=== PATIENT | female | born 2000 | race Caucasian/White ===

== ENCOUNTER → 2022-03-23 | Outpatient (CLI) | payer OTHER, SELFPAY ==
--- NOTE | 2022-03-23 13:53 | US_ITS ---
STUDY: ULTRASOUND BREAST - RIGHT REASON FOR EXAM: Female, 22 years old. Palpable lump in the right breast. Patient is . TECHNIQUE: Axial and longitudinal images of the RIGHT breast were performed with a high resolution ultrasound transducer. # OF IMAGES: 57 COMPARISON: None. FINDINGS: RIGHT Breast: The right breast was examined with ultrasound. Heterogeneous fibroglandular tissue. There is a 2.7 cm x 3.4 cm x 0.9 cm well-defined hypoechoic density at the 5 o''clock in the breast at 3 cm from nipple. This may represent a fibroadenoma. Biopsy recommended. US/Breast Limited Unilateral IMPRESSION: 2.7 cm x 3.4 cm x 0.9 cm well-defined hypoechoic solid nodule at the 5 o''clock position of the breast at 3 cm from the nipple. Biopsy recommended. ASSESSMENT CATEGORY: BIRADS Category 4: Suspicious - Biopsy Should Be Considered. A letter regarding these results will be sent to the patient by the facility within 30 days. Electronically Signed: Constantine Fuentes MD at 15:14 EST ,
== END | disposition home or self-care (01) ==
LOC: OPUS 13:49
PROVIDERS: Visit Provider Obstetrics & Gynecology
DX: N63.0 Unspecified lump in unspecified breast (principal); Z32.01 Encounter for pregnancy test, result positive
CPT/HCPCS: 76642

== ENCOUNTER → 2022-03-23 | Outpatient (CLI) | payer OTHER, SELFPAY ==
--- NOTE | 2022-03-23 13:54 | US_ITS ---
STUDY: FIRST TRIMESTER OBSTETRICAL ULTRASOUND REASON FOR EXAM: Female, 22 years old DATING LMP: 01/27/2022 TECHNIQUE: Transabdominal TECHNICAL QUALITY: Adequate. PRIOR ULTRASOUND: None. FINDINGS: There is visualization of a single gestational sac in a normal intrauterine position. The mean sac diameter (MSD) measures 2.1 cm, indicating an estimated gestational age (EGA) of 7 weeks, 0 days. The gestational sac shape is within normal limits. There is a visualized yolk sac. The yolk sac measures 3.7 mm. The placenta is non-visualized. There is visualization of a live embryo. The crown-rump length (CRL) measures 8.1 mm, indicating an estimated gestational age (EGA) of 6 weeks, 6 days. There is demonstrated cardiac activity with a heart rate of 129 bpm. The estimated gestation age (EGA) by LMP is 7 weeks, 6 days. The estimated date of delivery (ANDRAE) by LMP is 11/03/2022. The estimated gestation age (EGA) by US is 7 weeks, 0 days. The estimated date of delivery (ANDRAE) by US is 11/09/2022. The uterus measures 9.8 cm x 7.2 cm x 5.3 cm. There is no demonstrated uterine fibroid. The cervix is closed. The right ovary measures 3.6 cm x 2.8 cm x 4.2 cm. There is no right ovarian cyst. There is no visualized right adnexal mass or complex lesion. The left ovary measures 2.5 cm x 1.8 cm x 1.8 cm. There is no left ovarian cyst. There is no visualized left adnexal mass or complex lesion. There is no fluid in the cul de sac. US/Init OB < 14Wks US IMPRESSION: Single live uterine gestation with a mean gestational age of 7 weeks. Electronically Signed: Constantine Fuentes MD at 15:06 EST ,
== END | disposition home or self-care (01) ==
LOC: US 13:51
PROVIDERS: Visit Provider Obstetrics & Gynecology
DX: Z32.01 Encounter for pregnancy test, result positive (principal); N63.0 Unspecified lump in unspecified breast
CPT/HCPCS: 76801

== ENCOUNTER 2022-06-08 13:02 | Day surgery (SDC) | payer OTHER, SELFPAY ==
[2022-06-08] VITALS (8 sets, daily range): BP systolic 98–111; BP diastolic 55–69; PULSE 52–71; RESP 14–18; TEMP 36.6–37.2; O2SAT 97–100; BMI 23.1
--- NOTE | 2022-06-08 08:51 | PCM.HP.STD ---
HPI - General General Date of Admission: 06/08/22 Date of Service: 06/08/22 Chief Complaint: spotting after miscarriage HPI Narrative ZENOBIA LÓPEZ, is a 22 F scheduled for suction dilation and curettage for incomplete spontaneous . She had a first trimester miscarriage in April, but since then intermittent spotting persists. A pelvic US on 06/06/22 showed a thickened endometrium suggesting retained products of conception. PFSH Medical History Abnormal ultrasound of breast Leg cramps Migraine headache Non-smoker Home Medications lactobacillus combination no.4 3 billion cell capsule (Probiotic) 3,000 mmu cells PO DAILY 03/30/22 [History Last Taken Unknown] prenat.vits,gino,skf-yoau-fbsdm 1 tab PO DAILY 03/30/22 [History Last Taken Unknown] Allergy/AdvReac Type Severity Reaction Status Date / Time No Known Allergies Allergy Verified 06/07/22 08:31 Family History (Updated 06/08/22 @ 08:[address] Luz Marina Cash MD) Grandmother Hypertension Cancer ovarian ca - maternal GM Surgical History Hx of wisdom tooth extraction Social History Smoking Status: Never smoker Vital Signs Vital Signs Vital Signs: BP:?134/72?mm Hg, HR:?57?/min, Ht: 65.5 in, Ht-cm: 166.37 cm. Physical Exam Narrative General Examination: ? General appearance:??alert, well-nourished and in no acute distress.? Head:?normocephalic, atraumatic.? Oral cavity:?with good dentition?.? Neck / thyroid:??neck is supple, with full range of motion and no cervical lymphadenopathy,?no masses and/or tenderness,?normal thyroid size and shape without nodules, or tenderness.? Skin:??skin is warm and dry, with no rashes, good skin turgor and normal hair distribution.? Heart:??regular rate and rhythm without murmurs, gallops, clicks or rubs.? Lungs:??clear to auscultation bilaterally, with good air movement and no rales, rhonchi or wheezes.? Breasts:?approximately 8mm nodule in right upper outer breast, mobile and nontender, no discharge or erythema,?no dimpling,?no nipple retraction,?no skin changes.? Abdomen:??soft with good bowel sounds, nontender, and no masses or hepatosplenomegaly,?no hernias present,?no inguinal adenopathy.? Female genitourinary:?normal urethral meatus, bladder nondistended,?vaginal mucosa pink without lesions or discharge,?cervix without lesions, discharge, and no cervical motion tenderness,?uterus 6w size, nontender and mobile,?adnexa normal and nontender.? Extremities:??normal extremity with no clubbing, cyanosis or edema.? Neurologic:??alert and oriented.? Psych:??normal affect / mood.? Results Lab / Micro Data Labs: 03/29/22 6.1>12.6/36.2<264 A positive Assessment & Plan Assessment/Plan (1) Retained products of conception after miscarriage: (2) Abnormal uterine bleeding: PLAN: Plan Plan for suction dilation and curettage for retained products. Procedural r/b/i/a reviewed in office on 06/06/22. T&S pending on arrival.
[2022-06-08] MEDS: Lactated Ringers 1,000 ML 15 ML IV (13:47)
[2022-06-08 13:56] LABS: International Normalized Ratio 1.1; Prothrombin Time (Protime)PT. 14.1 SECONDS (11.7-14.9)
--- NOTE | 2022-06-08 14:30 | POC_PTH ---
PATIENT: ZENOBIA LÓPEZ LOC: [facility] [place][id number] AGE/SX: 22/F ROOM: RE06/08/[address]: Dr. Luz Marina Cash MD : 2000 BED: DIS: 06/08/2022 SPEC #: [id number] RECD: 06/08/22 17:10 STATUS: SURESH DEIDRA #: [id number] KELLE: 06/08/22 14:[address]: Luz Marina Roche DEPT: SURGICAL PATHOLOGY RECD BY: Nitin Newton ENTERED: 06/11/22 08:41 SP TYPE: PROD CONC OTHR DR: No Primary Care Phys Tissues: Product of conception, NOS Procedures: Surgery Specimen Level IV HEADER OPERATION: Suction dilation and curettage PRE-OP DIAGNOSIS: Retained products of conception, abnormal uterine bleeding TISSUE SUBMITTED: Retained products of conception MICROSCOPIC DIAGNOSIS Retained products of conception, dilation and curettage: Infarcted villi with calcifications and decidua, consistent with retained products of conception. Proliferative endometrium. Fragments of benign endocervical mucosa. DUYEN:cheyanne 06/12/2022 MICROSCOPIC DESCRIPTION Slides are reviewed. GROSS DESCRIPTION Received in fixative is one container labeled with the patient's name and designated retained products of conception. The specimen consists of multiple pieces of pink soft tissue mixed with blood clot that in aggregate measure 4.0 x 4.0 x 1.0 cm. tissue is not identified. The entire specimen is submitted in three cassettes. / DUYEN:cheyanne 06/11/2022 TC:5 CPT: 14860
[2022-06-08] MEDS: Lubricating Jelly 60 GM Tube 30 GM (15:03)
[2022-06-08] MEDS: Lidocaine 1% (20 ml mdv) 20 ML Vial (15:03)
--- NOTE | 2022-06-08 15:38 | DCINST_ITS ---
Discharge Instructions Diet Discharge Diet: No restrictions Activity Discharge Activity: Return to Normal Activity and May Shower Return to work on:: 06/11/22 May resume sexual activity in: 2 weeks Dressing / Incision Call your doctor if you observe: Using more than 1 pad per hour, Shortness of breath, Chest pain, Calf discomfort, Uncontrolled pain and - (Fever of 100.4 or higher) Follow Up Care Please Follow Up With: Luz Marina Roche MD When: 2-4 weeks Test Results: Test results from this visit will be discussed in further detail at your follow- up appointment, if applicable. Discharge Plan Admission Primary Reason for Your Visit: Dilation and curettage Attending Provider: Luz Marina Roche Primary Care Provider: Care PhysicianRachel Primary Discharge Orders/Prescriptions Prescriptions: New ibuprofen 800 mg tablet 800 mg PO Q8H PRN (Reason: pain) Qty: 30 0RF oxycodone 5 mg tablet 5 mg PO Q6H PRN (Reason: pain) 3 Days Qty: 3 0RF Continued prenat.vits,gino,kdt-gpda-imuea Tablet 1 tab PO DAILY Probiotic 3 billion cell capsule 3,000 mmu cells PO DAILY Rx Instructions: administer with a meal Referrals / Follow Up: Care Physician,No Primary [Primary Care Provider] - Disposition Disposition (needs filled in before D/C Order can be placed): Home, Self Care
--- NOTE | 2022-06-08 16:35 | OP.PCM_ITS ---
Problems Associated Problem List Diagnoses (1) Abnormal uterine bleeding: (2) Retained products of conception after miscarriage: Report of Operation Date of Procedure: 06/08/22 Pre-Operative Diagnosis: 1. Incomplete spontaneous 2. Abnormal uterine bleeding Post-Operative Diagnosis: 1. Incomplete spontaneous 2. Abnormal uterine bleeding Surgery/Procedure Performed:: Suction dilation and curettage Surgeon: Luz Marina Roche Anesthesiologist: Indio Wasserman Specimen's removed: products of conception Estimated Blood Loss (mL): 10 Fluids Replaced: 800 mL Description of Procedure: Patient was brought to the operating room and induced under MAC. She was repositioned into dorsal lithotomy and examination under anesthesia was performed. The perineum was prepped and draped in sterile fashion and straight catheterization of the bladder was performed. A bivalve speculum was placed vaginally. A paracervical block was administered using a total of 20 cc of 1% lidocaine. The anterior cervical lip was grasped using a single-tooth tenaculum and the uterus sounded to 9 cm. The cervix was subsequently dilated and suction curettage performed. This was followed by sharp curettage and then an additional pass of suction curettage with no further products retrieved. Bedside ultrasound was performed during the duration of the procedure demonstrating a thin endometrium at the end of the procedure. The tenaculum was removed from the cervix. Pressure was applied to the tenaculum site until it was hemostatic. The speculum was removed and the patient was placed into dorsal supine, awakened and transferred to the recovery room without complication. Sponge counts were correct x2. Complications None Admit VTE Documentation VTE Present on Admission: No VTE Mechan Device Prophylaxis: [facility] Pharm Prophylaxis ordered?: No
== END 2022-06-08 17:17 | disposition home or self-care (01) ==
LOC: SDC 13:07 → AC 13:08
PROVIDERS: Referring Provider Obstetrics & Gynecology; Visit Provider Obstetrics & Gynecology
PROC: (CPT 59820; principal; 2022-06-08 14:15)
DX: O03.4 Incomplete spontaneous abortion without complication (principal); N93.9 Abnormal uterine and vaginal bleeding, unspecified
CPT/HCPCS: 59820; 01965; 81240; 81241; 85610; 85730; 86850; 86900; 86901; 88305; J7120; J2405

== ENCOUNTER → 2022-06-26 | Outpatient (CLI) | payer OTHER, SELFPAY ==
--- NOTE | 2022-06-26 | BRBX_PTH ---
PATIENT: ZENOBIA LÓPEZ LOC: [facility] U#:[id number] AGE/SX: 22/F ROOM: RE06/26/[address]: Dr. Inez Reyes MD : 2000 BED: DIS: 06/26/2022 SPEC #: [id number] RECD: 06/26/22 15:37 STATUS: SURESH DEIDRA #: [id number] KELLE: 06/26/22 00:[address]: Inez Reyes DEPT: SURGICAL PATHOLOGY RECD BY: Nitin Newton ENTERED: 06/27/22 11:21 SP TYPE: BREAST BX OTHR DR: No Primary Care Phys Tissues: Right breast, NOS Procedures: Surgery Specimen Level IV HEADER OPERATION: Right breast biopsy PRE-OP DIAGNOSIS: Fibroadenoma likely TISSUE SUBMITTED: Right breast 5 o?clock, 3.0 cm from nipple MICROSCOPIC DIAGNOSIS Right breast at 5 o?clock, needle core biopsy: Benign breast tissue with fibroadenomatous change. AM:cheyanne 06/28/2022 MICROSCOPIC DESCRIPTION Slides are reviewed. GROSS DESCRIPTION Received in fixative is one container labeled with the patient's name and designated right breast mass tissue. The specimen consists of multiple irregular and elongated fragments of urena tissue that in aggregate measure 1.0 x 0.2 x <0.1 cm. The specimen is totally submitted in one cassette. / AM:cheyanne 06/27/2022 TC:5 CPT: 54938
== END | disposition home or self-care (01) ==
LOC: LABSPEC 15:59
PROVIDERS: Referring Provider Surgery; Visit Provider Surgery
DX: D24.1 Benign neoplasm of right breast (principal)
CPT/HCPCS: 88305

== ENCOUNTER → 2022-09-17 | Outpatient (CLI) | payer OTHER, SELFPAY ==
[2022-09-17 15:11] LABS: Estradiol 494.3 pg/mL
[2022-09-17 15:14] LABS: Progesterone Level 15.54 ng/mL (See Comment)
[2022-09-17 15:47] LABS: hCG Titer Quant., Serum 41756 mIU/mL (1-3)
== END | disposition home or self-care (01) ==
LOC: PAVLAB 13:56
PROVIDERS: Referring Provider Obstetrics & Gynecology; Visit Provider Obstetrics & Gynecology
DX: E28.9 Ovarian dysfunction, unspecified (principal)
CPT/HCPCS: 36415; 82670; 84144; 84702

== ENCOUNTER → 2023-04-24 | Outpatient (CLI) | payer OTHER, SELFPAY ==
--- NOTE | 2023-04-24 13:59 | US_ITS ---
STUDY: ULTRASOUND BREAST - RIGHT REASON FOR EXAM: Female, 23 years old. Breast lump at the 6:00 position of the right breast. TECHNIQUE: Axial and longitudinal images of the RIGHT breast were performed with a high resolution ultrasound transducer. # OF IMAGES: 30 COMPARISON: Comparison is made with prior sonogram of the right breast dated March 23, 2022. FINDINGS: RIGHT Breast: The inferior aspect of the right breast exam with ultrasound. Mildly dilated retroareolar ducts. No cystic or solid mass is seen. IMPRESSION: Mildly dilated retroareolar ducts. ASSESSMENT CATEGORY: BIRADS Category 2: Benign. A letter regarding these results will be sent to the patient by the facility within 30 days. Electronically Signed: Constantine Fuentes MD at 15:23 EST , STUDY: ULTRASOUND BREAST - LEFT REASON FOR EXAM: Female, 23 years old. Palpable lump left breast. TECHNIQUE: Axial and longitudinal images of the LEFT breast were performed with a high resolution ultrasound transducer. # OF IMAGES: 30 COMPARISON: None. FINDINGS: LEFT Breast: The lateral lower aspect of the left breast was examined with ultrasound. Mild dilatation of retroareolar ducts. No solid or cystic mass lesion is seen. US/Breast Limited Unilateral IMPRESSION: Dilated retroareolar ducts. ASSESSMENT CATEGORY: BIRADS Category 2: Benign. A letter regarding these results will be sent to the patient by the facility within 30 days. Electronically Signed: Constantine Fuentes MD at 15:24 EST ,
--- OUTSIDE RECORDS SUMMARY | 2023-04-24 18:23 | XMS RPT_ITS | CCD ---
Author Name Unknown Address [id number] [place] [address] Organization [facility] Care Team Providers Care Bone Crusher Name Role Phone KIRSTEN TAN MD Attending Unavailable KIRSTEN TAN MD Primary Care Unavailable KIRSTEN TAN MD Admitting Unavailable MELVIN LÓPEZ Admitting Unavailable MELVIN LÓPEZ Attending Unavailable MELVIN LÓPEZ Primary Care Unavailable GABY HARRISON Attending Unavailable OMGABY LEMA Primary Care Unavailable GABY HARRISON Admitting Unavailable CHARIS MORGAN Primary Care Unava ilable TIKA MATUTE Attending Unavailable PHYSICIAN, NOT RECORDED Primary Care Physician U navailable PHYSICIAN, NOT RECORDED Primary Care UnavailDR CHARIS Mcleod MD Attending Unava ilable PHYSICIAN, NOT RECORDED Primary Care UnavailDR CHARIS Mcleod MD Attending Unava ilable VERONICA PRIMARY MD BEAR Primary Care Unavailable CHARLEY MONTGOMERY Attending Unavailable CHARIS MORGAN T Referring Unavailab le Medications Current Medications Medication Drug Class(es) Dates Sig (Normalized) Sig (Original) AD (2 sources) Start: 05-07-2022 AD Or al, qDay, 0 Refill(s) Start Date: 05/07/22 Status: Ordered Probiotic (2 sources) Start: 05-07-2022 Probiotic 0 Re fill(s) Start Date: 05/07/22 Status: Ordered Problems Problem Classification Problem Date Documented Da te Episodic/Chronic Other complications of (3 sources) Missed miscarriage; Translations: [Missed ] 05-07-2022 Episodic Retinal detachments; defects; vascular occlusion; and retinopathy (4 sources) Tributary (branch) retinal vein occlusion, right eye, stable; Translations: [Branch retinal vein occlusion with no neovascularization] Onset: 07-14-2021 Chronic Spontaneous (2 sources) Complete or unspecified spontaneous without complication; Translations: [Complete or unspecified spontaneous without complication] Onset: 05-04-2022 Episodic Results Test Name Value Interpretation Reference Range Facil ity Encounters Encounter Date Encounter Type Care Provider Facility Start: 11-06-2022 End: 11-06-2022 ambulatory MD [facility] Start: 07-20-2022 End: 07-21-2022 ambulatory NOT RECORDED PHYSICIAN Facility:B Start: 07-20-2022 End: 07-20-[address] CHARIS BARILLAS MD [facility] Start: 07-12-2022 End: 07-13-2022 ambulatory NOT RECORDED PHYSICIAN Facility:[facility] Start: 07-12-2022 End: 07-12-[address] CHARIS BARILLAS MD [facility] Start: 05-04-2022 End: 05-05-2022 Emergency department patient visit [facility] Start: 07-27-2021 End: 07-27-2021 ambulatory KIRSTEN TAN [facility] Start: 07-14-2021 End: 07-14-2021 ambulatory MELVIN LÓPEZ [facility] Start: 07-13-2021 End: 07-13-2021 ambulatory GABY HARRISON [facility] Payers Date Payer Category Payer Unknown [id number] 2000 Unknown [id number] 2000 Unknown [id number] 2.16.84 [id number] 2000 Unknown [id number] 2.16.84 [id number] 2000 Unknown [id number] 2.16. [id number] 2000 Unknown [id number] 2.16.8 [id number] 2000 Unknown [id number] 2.16.8 [id number] 2000 Unknown [id number] 2.16. [id number] Social History Date Type Detail Facility Start: 05-07-2022 Tobacco smoking status Never s moked tobacco (finding) [facility] Sex Assigned At Sex [facility] Evaluation + Plan note 07-20-2022 Note Date & Type Note Facility 07-20-2022 Evaluation + Plan note Diagnostic Tests PendingBeta 2 Glycoprot IgG and IgM 07/20/22Cardiolipin IgM Antibodies 07/20/22Cardiolipin IgG Antibodies 07/20/22Circulating Anticoagulants - Panel 07/20/22 [facility] Evaluation + Plan note 07-12-2022 Note Date & Type Note Facility 07-12-2022 Evaluation + Plan note Diagnostic Tests PendingMISC Lab Send out (Blood Specimens) 07/12/22 [facility] Hospital course Narrative Note Date & Type Note Facility Hospital course Narrative No data available for this section [facility] Hospital Discharge instructions Note Date & Type Note Facility Hospital Discharge instructions No data available for this section [facility] Progress note Note Date & Type Note Facility Progress note No data available for this section [facility] Summary Purpose Family History No Family History Records FoundNo Family History Records FoundNo Family History Records FoundNo Family History Records FoundNo Family History Records Found Advance Directives No Advanced Directives Records FoundNo Advanced Directives Records FoundNo Advanced Directives Records FoundNo Advanced Directives Records FoundNo Advanced Directives Records Found Additional Source Comments INFORMATION SOURCE (unrecogn ized section and content) DATE CREATED AUTHOR AUTHOR'S ORGANIZ ATION 08/15/2021 [facility] DATE CREATED AUTHOR AUTHOR'S ORGANIZ ATION 05/10/2022 [facility] DATE CREATED AUTHOR AUTHOR'S ORGANIZ ATION 07/25/2022 [facility] ([place]) DATE CREATED AUTHOR AUTHOR'S ORGANIZ ATION 11/07/2022 [facility] Patient Care team informatio n (unrecognized section and content) Care Team Personnel Name: PHYSICIAN, NOT RECORDED Member Role: Primary Care Physician Care Team Personnel Name: PHYSICIAN, NOT RECORDED Member Role: Primary Care Physician FOR RECORDS PERTAINING TO PATIENTS WHO ARE OR HAVE BEEN ENROLLED IN A CHEMICAL DEPENDENCY/SUBSTANCEABUSE PROGRAM, SOME INFORMATION MAY BE OMITTED. This clinical summary was aggregated from multiple sources. Caution should be exercised in using it in the provision of clinical care. This summary normalizes information from multiple sources, and as a consequence, information in this document may materially change the coding, format and clinical context of patient data. In addition, data may be omitted in some cases. CLINICAL DECISIONS SHOULD BE BASED ON THE PRIMARY CLINICAL RECORDS. [facility] [employer] provides no warranty or guarantee of the accuracy or completeness of information in this document.
== END | disposition home or self-care (01) ==
PROVIDERS: Visit Provider Obstetrics & Gynecology
DX: N63.23 Unspecified lump in the left breast, lower outer quadrant (principal); N63.15 Unspecified lump in the right breast, overlapping quadrants
CPT/HCPCS: 76642

== ENCOUNTER → 2023-06-26 | Outpatient (CLI) | payer OTHER, SELFPAY ==
[2023-06-26 18:13] LABS: Vitamin D,25 Hydroxy 45.7 ng/mL
== END | disposition home or self-care (01) ==
LOC: LAB 16:33
PROVIDERS: Referring Provider Obstetrics & Gynecology; Visit Provider Obstetrics & Gynecology
DX: E55.9 Vitamin D deficiency, unspecified (principal)
CPT/HCPCS: 36415; 82306

== ENCOUNTER 2024-09-03 11:58 | Day surgery (SDC) | payer OTHER, SELFPAY ==
--- NOTE | 2024-09-02 12:35 | PCM.HP.BLA ---
History and Physical Date of Admission: 09/03/24 Pre-Op History and Physical HPI: The patient is a 24 year old female presenting for pre-operative visit. She is scheduled for suction D&C, for anembryonic pregnancyu on 09/03/24. Procedure discussed along with risks, benefits and complications. Other alternatives discussed for management. Consent form signed? Yes. PAST MEDICAL HISTORY Diagnosis Date ? Miscarriage (HCC) 2022 12 weeks PAST SURGICAL HISTORY Procedure Laterality Date ? D&C, DIAG AND/OR THERAPEUTIC 2022 Current Outpatient Medications Medication Sig Dispense Refill ? PNV no.95/ferrous fum/folic ac ( ORAL) Take by mouth. No current facility-administered medications for this visit. ALLERGIES: Patient has no known allergies. PERSONAL HISTORY: Social History Tobacco Use ? Smoking status: Never ? Smokeless tobacco: Never Vaping Use ? Vaping status: Never Used Substance Use Topics ? Alcohol use: Not Currently ? Drug use: Never FAMILY HISTORY: FAMILY HISTORY Problem Relation Age of Onset ? No Known Problems Mother ? Colon Cancer Father ? No Known Problems Sister ? No Known Problems Brother ? No Known Problems Brother ? Uterine Cancer Maternal Grandmother REVIEW OF SYMPTOMS: GENERAL: denies fevers or chills ENDOCRINOLOGY: has not been on steroids Cardiology : denies palpitations or chest pain Respiratory: denies SOB or cough Hematology: denies history of prolonged bleeding or easy bruising or VTE Allergy: Denies history of personal or family history of allergy to anesthesia PHYSICAL EXAMINATION: VITALS: Blood pressure 116/60, weight 64 kg (141 lb 3.2 oz), last menstrual period 05/18/2024, not currently . GENERAL: The patient is well nourished, well hydrated in no acute distress. , The patient is oriented to time, place, and person. NECK: Supple. No lynphadenopathy, normal thyroid, no thyromegaly. LUNGS: Clear to auscultation bilaterally. no wheezes, rhonchi or rales HEART: Regular rate and rhythm, Normal heart sounds, and No murmurs or gallops IMPRESSION: missed ab/ anembyronic /10 weeks from LMP PLAN: The risks/benefits/alternatives and personal involved for the planned suction D&C were reviewed with the patient. Her questions were answered to her satisfaction and she desires to proceed. Consent was signed. I reviewed with her postop instructions and expectations. Would accept blood products Desires to have POCs released to her after pathology eval Get labs in case of molar diagnosis-cbc,cmp, type and screen, quant hcg Patient's last menstrual period was 05/18/2024 (approximate). I have reviewed and updated past medical and surgical history, medications and allergies . Assessment & Plan Assessment/Plan (1) Missed : (2) Anembryonic : (3) 10 weeks gestation of :
[2024-09-03] VITALS (8 sets, daily range): BP systolic 101–120; BP diastolic 56–75; PULSE 54–97; RESP 14–16; TEMP 36.6–37.3; O2SAT 94–100; BMI 23.9
[2024-09-03] MEDS: Acetaminophen 500 MG Tablet 1000 MG PO (13:07)
[2024-09-03] MEDS: Doxycycline 100 MG CAPSULE 200 MG PO (13:07)
[2024-09-03] MEDS: Lactated Ringers 1,000 ML 15 ML IV (13:07)
[2024-09-03 13:12] LABS: Hematocrit 36.9 % (37-47); Hemoglobin 12.8 g/dL (12.0-15.0); Mean Corp Hgb Conc 34.7 g/dL (32-36); Mean Corpuscular Volume 89.3 fL (81-99); Mean Platelet Vol. 9.9 fl (6.2-12.0); Platelet Count 217 K/mm3 (150-450); RBC Distribution Width CV 12.2 % (11.6-14.6); RBC Distribution Width SD 39.8 fl (35.1-43.9); Red Blood Count 4.13 M/mm3 (4.2-5.4); White Blood Count 7.3 K/mm3 (4.4-11.0)
[2024-09-03 13:28] LABS: Internal QC Validated? YES +Cl - CLEAR BKGD; Pregnancy, Serum, hCG Quali. POSITIVE Negative
--- NOTE | 2024-09-03 13:40 | PRE.ANES_ITS ---
ASA Classification* ASA Classification ASA Classification: 2 Assessment & Plan Anesthesia* Anesthesia Assessment Anesthesia Assessment: Discussed sedation and/or anesthesia options, risks, benefits, and alternatives with patient/parents/legal guardian/POA. Questions invited. The patient/parents/legal guardian/POA seems to understand and agrees to proceed with anesthesia plan. Reviewed the physical assessment, medical history, allergy history and patient home medications list prior to surgery/procedure/anesthetic and documented any changes. Performed airway and anesthesia risk assessments. Anesthesia Type Anesthesia Type: MAC History Source History Obtained from:: Patient and Chart Anesthesia Focused Assessment* Temperature: 99.2 F Pulse Rate: 54 Blood Pressure: 112/58 Respiratory Rate: 16 Pulse Ox: 100 Oxygen Delivery Method: Room Air Airway Assessment Mouth opens: >3 cm Mallampati Score: II Teeth Condition: Intact Neck Range of motion (ROM): Full ROM Labs Anesthesia Preop lab: CBC WBC 7.3 K/mm3 (4.4-11.0) 09/03/24 12:45 09/03/24 RBC 4.13 M/mm3 (4.2-5.4) L 09/03/24 12:45 09/03/24 Hgb 12.8 g/dL (12.0-15.0) 09/03/24 12:45 09/03/24 Hct 36.9 % (37-47) L 09/03/24 12:45 09/03/24 Plt Count 217 K/mm3 (150-450) 09/03/24 12:45 09/03/24 CHEMISTRY Potassium Pending 09/03/24 12:45 09/03/24 Sodium Pending 09/03/24 12:45 09/03/24 BUN Pending 09/03/24 12:45 09/03/24 Creatinine Pending 09/03/24 12:45 09/03/24 Glucose Pending 09/03/24 12:45 09/03/24 COAG PT 14.1 SECONDS (11.7-14.9) 06/08/22 13:30 HCG, Quant 21642 mIU/mL (1-3) H 09/17/22 14:02 09/17/22 Pre-Assessment Diagnosis/Proposed Procedure Planned Operative Procedure(s): SUCTION D&C Anesthesia History 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 When Was Last Pacemaker Check QUESTION #4 FULL TEXT: You/Your Family Experience fever (hyperthermia) with Anesthesia Last Oral Intake Last Oral intake: Last Oral Intake NPO since 08:00 09/03/24 12:37 Meds taken in AM with sips of Yes 09/03/24 12:37 water? Meds patient instructed to take am of surgery PONV PONV - word processor technician: PONV - word processor technician Female Yes 09/02/24 12:33 HX of Motion Sickness No 09/02/24 12:33 HX of N/V After Surgery No 09/02/24 12:33 Non-Smoker Yes 09/02/24 12:33 Duration of Surgery greater No 09/02/24 12:33 than 60 minutes Number of Risk Factors 2 09/02/24 12:33 PONV Score Moderate Risk 09/02/24 12:33 Height & Weight Height & Weight: Anesthesia: Height & Weight Height 5 ft 4 in 09/03/24 12:37 Weight: 63.2 kg 09/03/24 12:37 Body Mass Index (BMI) 23.9 09/03/24 12:37 Respiratory Assessment Respiratory Assessment - word processor technician: Respiratory Tract Infection Hx - word processor technician Hx Respiratory Tract Infection No 09/02/24 12:33 STOP Sleep Apnea STOP Sleep Apnea - word processor technician: STOP Sleep Apnea - word processor technician Hx Hypertension No 09/02/24 12:33 Hx Sleep Apnea No 09/02/24 12:33 CPAP BIPAP Do you snore loudly (louder No 09/02/24 12:33 than talking or can be heard Do you often feel tired/ No 09/02/24 12:33 fatigued/ sleepy during daytime? Has anyone observed you stop No 09/02/24 12:33 breathing during sleep? STOP Results Negative 09/02/24 12:33 QUESTION #5 FULL TEXT : Do you snore loudly (louder than talking or can be heard through closed doors)? 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 Specify any problems Hx of Preganancy in last 3 Yes 09/02/24 12:33 Months Nurse Filling Out Transfusion VCHRISTIN 09/02/24 12:33 & Questions: Date: 09/02/24 09/02/24 12:33 Time: 12:34 09/02/24 12:33 Patient unable to answer at this time (ie. confused, unrespo /Reproduction History /Reproductive History - word processor technician: /Reproductive Hx- word processor technician Hx Now Yes 09/02/24 12:33 Gestational Age (in weeks): EDC: Hx Hx Para Hx Section SAB No 09/02/24 12:33 Active Medications Active Medications: Current Medications Generic Name Dose Route Start Last Admin Trade Name Freq PRN Reason Stop Dose Admin Lactated Ringer's 1,000 mls @ 15 mls/hr 09/03/24 12:30 09/03/24 13:07 IV 15 mls/hr .Q48H ERMA Administration PFSH Medical History (Updated 09/02/24 @ 12:[address] Montse Tamez MD) Migraine headache Non-smoker Leg cramps Abnormal ultrasound of breast Home Medications ?Medication ?Instructions ?Recorded ?Last Taken ?Type prenat.vits,gino,luf-ogkf-zrddt 1 tab PO DAILY 03/30/22 Unknown History Allergy/AdvReac Type Severity Reaction Status Date / Time No Known Allergies Allergy Verified 09/02/24 12:28 Family History Grandmother Hypertension Cancer ovarian ca - maternal GM Surgical History (Updated 09/02/24 @ 12:33 by Marissa Lombardo) Hx of dilation and curettage Hx of wisdom tooth extraction Social History Smoking Status: Never smoker Review of Systems (Anesthesia) ROS Narrative System reviewed and no additional complaints, except as documented.
[2024-09-03 13:43] LABS: ALB/GLOB Ratio 1.5 RATIO (0.9-2.4); AST(SGOT) 16 U/L (<=31); Alanine Aminotransfer ALT/SGPT 11 U/L (<=34); Alkaline Phosphatase 35 U/L (35-104); Anion Gap 11 (5-15); BUN 8 mg/dL (4-19); BUN/Creat Ratio 15.6 RATIO (10-20); Calcium,Total 8.9 mg/dL (7.6-11.0); Carbon Dioxide 19.5 mmol/L (21.0-32.0); Chloride 104 mmol/L (98-108); Creatinine, Serum 0.49 mg/dL (0.70-1.20); EST Glomerular Filtration Rate 135 (>60); Estimated Creatinine Clearance 152.87 ml/min (50-250); Globulin 2.6 g/dL (2.2-4.2); Glucose 79 mg/dL (70-99); Potassium 4.2 mmol/L (3.3-5.1); Protein, Total 6.6 g/dL (5.9-8.4); Sodium Level 134 mmol/L (133-145); Total Bilirubin 0.33 mg/dL (0.00-1.30)
--- NOTE | 2024-09-03 13:50 | POC_PTH ---
PATIENT: ZENOBIA LÓPEZ LOC: [facility] [place][id number] AGE/SX: 24/F ROOM: RE09/03/[address]: Dr. Montse Tamez MD : 2000 BED: DIS: 09/03/2024 SPEC #: [id number] RECD: 09/03/24 17:22 STATUS: SURESH REKrista #: [id number] KELLE: 09/03/24 13:[address]: Montse Tamez DEPT: SURGICAL PATHOLOGY RECD BY: Micky Paiz ENTERED: 09/04/24 09:10 SP TYPE: PROD CONC OTHR DR: No Primary Care Phys Tissues: A - Product of conception, NOS Procedures: Surgery Specimen Level IV HEADER OPERATION: Dilation and curettage, suction PRE-OP DIAGNOSIS: Missed , anembryonic , 10 weeks gestation of TISSUE SUBMITTED: A- Products of conception MICROSCOPIC DIAGNOSIS A. Uterine contents, missed , dilation and curettage: * Products of conception including chorionic villi with hydropic degeneration and partially necrotic decidua. MICROSCOPIC DESCRIPTION Slides are reviewed. GROSS DESCRIPTION A. Received in formalin labeled with the patient's name and date of . Designated as products of conception is a 13.0 x 10.2 x 2.4 cm aggregate of urena-pink to red-brown soft to rubbery tissue fragments and mucoid material. Chorionic villi is identified. No tissues are identified. Shipyard Helper sections of the chorionic villi are submitted in 2 cassettes. NM 09/04/2024 CPT:[id number]
--- NOTE | 2024-09-03 14:29 | DCINST_ITS ---
Discharge Instructions Diet Discharge Diet: No restrictions DC O2, CPAP, BIPAP needs Home O2 Discharge instructions: No Dressing / Incision Discharge Activity: May Shower and May Take a Tub Bath (in 1 week) Return to work on:: 09/05/24 May resume sexual activity in: 2 weeks Lifting Restrictions: none Dressing / Incision Call your doctor if your incision/area has: Sudden Increased Bleeding and Foul Smelling Discharge Call your doctor if you observe: Fever of 101 or Higher and Using more than 1 pad per hour (for 2 hrs in a row) Follow Up Care Please Follow Up With: Montse Tamez MD When: 2-4 weeks or as needed. Call [phone] or send a [facility] message to make an appointment or with any concerns. Test Results: Test results from this visit will be discussed in further detail at your follow- up appointment, if applicable. Discharge Plan Admission Primary Reason for Your Visit: Suction dilation and curettage Attending Provider: Montse Tamez Primary Care Provider: Care Physician,Rachel Primary Instructions Print Language: Greenlandic Discharge Orders/Prescriptions Prescriptions: No Action prenat.vits,gino,bwa-tgyg-kqpec Tablet 1 tab PO DAILY Referrals / Follow Up: Care Physician,No Primary [Primary Care Provider] - Disposition Disposition (needs filled in before D/C Order can be placed): Home, Self Care
[2024-09-03] MEDS: Lidocaine 1% /Epi 1:100 (20ml) 20 ML Vial (14:33)
--- NOTE | 2024-09-03 14:49 | OP.PCM_ITS ---
Problems Associated Problem List Diagnoses (1) 10 weeks gestation of : (2) Anembryonic : (3) Missed : Operative Report (Standard) Operative Information Date of Procedure: 09/03/24 Pre-Operative Diagnosis: missed , anembyronic Post-Operative Diagnosis: same Surgery/Procedure Performed: suction dilation and curettage with ultrasound guidance wind farm support specialist: No Type of Anesthesia: MAC/Supplemental/Local RN Documented Start/Stop Times: Operation Date: 09/03/24 13:50 Case Time Into Pre-Op 09/03/24 12:16 Procedure Start Time: 14:33 Procedure Stop Time: 14:44 Select all DRAINS/GRAFTS/IMPLANTS that apply: None Estimated Blood Loss: 20 Fluids Replaced: 500 cc Specimen collected: Yes Description of specimen(s) removed: products of conceoption Description of surgery: The patient was taken to the operating room where she was prepped and draped in a dorsolithotomy position. A bimanual examination was done and confirmed the uterus to be 12 weeks size and anteverted. A weighted speculum was placed in the vagina and the anterior lip of the cervix was grasped with a single-tooth tenaculum. The cervix was dilated serially. A 9 mm suction curette was placed to the uterine fundus and the suction was created. Several passes were made to remove clots and products of conception. When minimal tissue was returning a gentle sharp curettage was then done of the uterine cavity. The uterine cry was appreciated and another gentle pass was made with the suction curette. At this point there is no active bleeding from the uterus and minimal blood and no further products of conception were removed. The instruments removed from the cervix and the cervix was observed and no active bleeding was identified. The tenaculum was removed off the cervix and hemostasis of the tenaculum site was assured. Made of the instruments removed from the vagina and the vaginal sweep was completed by me. Sponge and needle counts were correct. The patient was taken to the recovery room in stable condition. Findings: 12 week size uterus, normal cervix and vagina. 10 weeks from LMP Specimen: Products of conception Surgical Findings: enlarge anteverted uterus, products of conception, normal cervix and vagina Complications Complications: No Admit VTE Documentation VTE Present on Admission: No VTE Mechan Device Prophylaxis: SCD's VTE Pharm Prophylaxis ordered?: No
--- NOTE | 2024-09-03 14:53 | PCM.POST.ANE ---
Anesthesia: Postop Eval I Current Vital Signs Temperature: 97.9 F Pulse Rate: 92 Blood Pressure: 101/57 Respiratory Rate: 14 Pulse Ox: 94 Oxygen Delivery Method: Room Air Assessment Airway patent: Yes Spontaneous unlabored respirations: Yes Mental status: Awake and Calm nausea: No Vomiting: No Anesthesia Complication: No Fluid Hydration Crystalloid volume administer (ml): 500 Total IV fluid infused: 500 Progress Note Anesthesia document: Postop Eval 1 completed: Yes
--- NOTE | 2024-09-03 15:13 | POSTOPAN2_ITS ---
Anesthesia Postop Eval I Sum Postop Eval Completion status Anesthesia document: Postop Eval 1 completed: Yes Anesthesia Postop Eval I Summary Anesthesia Postop Eval I Summary: Anesthesia Postop Eval I: Assessment Summary Airway patent Yes 09/03/24 14:55 GUN SEALING MACHINE OPERATOR.[email or web address] Spontaneous unlabored Yes 09/03/24 14:55 GUN SEALING MACHINE OPERATOR.GDOTT respirations Mental status Awake,Calm 09/03/24 14:55 GUN SEALING MACHINE OPERATOR.GDOTT nausea No 09/03/24 14:55 GUN SEALING MACHINE OPERATOR.GDOTT Vomiting No 09/03/24 14:55 GUN SEALING MACHINE OPERATOR.GDOTT Anesthesia Postop Eval I: Fluid Summary Crystalloid volume administer 500 09/03/24 14:55 GUN SEALING MACHINE OPERATOR.GDOTT (ml) Colloids volume administered ( ml) Blood Product volume administered (ml) Total IV fluid infused 500 09/03/24 14:55 GUN SEALING MACHINE OPERATOR.GDOTT Anesthesia Postop Eval I: Summary Notes Anesthesia Complication No 09/03/24 14:55 GUN SEALING MACHINE OPERATOR.GDOTT Anesthesia Complication Comment: Post-operative progress note Anesthesia: Postop Eval II Evaluation Mental status: Awake Pain Level: 0 nausea: No Vomiting: No Complications Anesthesia Complication: No
--- NOTE | 2024-09-03 15:13 | PCM.POSTANE2 ---
Anesthesia Postop Eval I Sum Postop Eval Completion status Anesthesia document: Postop Eval 1 completed: Yes Anesthesia Postop Eval I Summary Anesthesia Postop Eval I Summary: Anesthesia Postop Eval I: Assessment Summary Airway patent Yes 09/03/24 14:55 RAILROAD TRACK INSPECTOR.[email or web address] Spontaneous unlabored Yes 09/03/24 14:55 RAILROAD TRACK INSPECTOR.GDOTT respirations Mental status Awake,Calm 09/03/24 14:55 RAILROAD TRACK INSPECTOR.GDOTT nausea No 09/03/24 14:55 RAILROAD TRACK INSPECTOR.GDOTT Vomiting No 09/03/24 14:55 RAILROAD TRACK INSPECTOR.GDOTT Anesthesia Postop Eval I: Fluid Summary Crystalloid volume administer 500 09/03/24 14:55 RAILROAD TRACK INSPECTOR.GDOTT (ml) Colloids volume administered ( ml) Blood Product volume administered (ml) Total IV fluid infused 500 09/03/24 14:55 RAILROAD TRACK INSPECTOR.GDOTT Anesthesia Postop Eval I: Summary Notes Anesthesia Complication No 09/03/24 14:55 RAILROAD TRACK INSPECTOR.GDOTT Anesthesia Complication Comment: Post-operative progress note Anesthesia: Postop Eval II Evaluation Mental status: Awake Pain Level: 0 nausea: No Vomiting: No Complications Anesthesia Complication: No
== END 2024-09-03 15:46 | disposition home or self-care (01) ==
LOC: SDC 12:05 → AC 12:06
PROVIDERS: Referring Provider Obstetrics & Gynecology; Visit Provider Obstetrics & Gynecology
PROC: (CPT 59820; principal; 2024-09-03 13:35)
DX: O02.0 Blighted ovum and nonhydatidiform mole (principal)
CPT/HCPCS: 59820; 01965; 80053; 84702; 84703; 85027; 86850; 86900; 86901; 88305; J2405

== ENCOUNTER 2024-09-08 11:33 | Emergency (ER) | payer OTHER, SELFPAY ==
[2024-09-08] VITALS (7 sets, daily range): BP systolic 104–114; BP diastolic 62–76; PULSE 52–84; RESP 15–18; TEMP 36.4–36.9; O2SAT 94–99; BMI 23.6
--- NOTE | 2024-09-08 12:00 | US_ITS ---
PROCEDURE: TRANSVAGINAL NON- 09/08/2024 REASON FOR EXAM: D C ON SATURDAY. Heavy bleeding with clots. TECHNIQUE: TRANSVAGINAL NON- COMPARISON: None FINDINGS: Measurements: Uterus: 12.1 cm x 8.5 cm x 6.4 cm with a volume of 347.39 mL Endometrial Thickness: 25 mm. There is a hypoechoic heterogeneous area within the endometrium measuring 1.9 cm 2.3 cm 2.1 cm. This may represent products of conception. Right Ovary: 3.8 cm x 3.1 cm x 2.5 cm with a volume of 15.53 mL. Left Ovary: 5.8 cm x 6.8 cm x 5.2 cm with a volume of 106.55 mL. Uterus: Uterus is enlarged. Endometrium: Findings suggestive of retained products of conception. Right ovary: Unremarkable. Left ovary: There is a left ovarian cyst measuring 4.9 cm 6 cm 4.9 cm. Other: Small amount of free fluid is seen surrounding the left adnexa. US/Transvaginal Non- IMPRESSION: Findings suggestive of retained products of conception. Left ovarian cyst. Reading Location: [id number]
--- NOTE | 2024-09-08 12:00 | ED.VIS.FEGU ---
HPI HPI - Female History of Present Illness Chief Complaint: Vag Bleeding Narrative Narrative: Patient is a 24-year-old female G3, P1 with 2 miscarriages who presents to the emergency department chief complaint of vaginal bleeding. Patient states on of this past week she had a D&C performed by her physician at [facility] BOBBIN INSPECTOR and notes that afterwards she had spotting and bleeding that seem to get better by Saturday. States that Saturday she started having heavy bleeding again which persisted into Saturday and then when she woke up this morning she noted that she was passing large clots. She states that she then called her BOBBIN INSPECTOR and they advised her to come here to the emergency department to be evaluated and have a ultrasound obtained. [facility] Medical History Migraine headache Non-smoker Leg cramps Abnormal ultrasound of breast Home Medications ?Medication ?Instructions ?Recorded ?Last Taken ?Type prenat.vits,gino,fdg-tikt-unwgy 1 tab PO DAILY 03/30/22 Unknown History Held on 09/08/24. Instructions: MD Ordered Allergy/AdvReac Type Severity Reaction Status Date / Time No Known Allergies Allergy Verified 09/08/24 11:35 Family History Grandmother Hypertension Cancer ovarian ca - maternal GM Surgical History Hx of dilation and curettage Hx of wisdom tooth extraction Social History Smoking Status: Never smoker ROS ROS ED ROS Narrative Constitutional: Denies headache, lightness, dizziness Eyes: Denies change in vision double vision blurry vision Cardiovascular: Denies chest pain Respiratory: Denies shortness of breath Abdomen: Denies abdominal pain nausea vomit diarrhea : Complains of vaginal bleeding as noted above denies any painful urination or increased frequency of urinating Neurological: Denies numbness, wheeze, tingling Musculoskeletal: Denies back pain Skin: Denies rashes or lesions EXAM Physical Exam Narrative Exam Narrative: general: Patient was lying in bed rest comfortably did not appear to be acute distress Head: Atraumatic, normocephalic Eyes: PERRL bilaterally, EOMI bilateral, no conjunctival injection noted Neck: Soft, supple, trachea midline Cardiovascular: Regular rate rhythm no murmurs gallops or rubs are noted Respiratory: Clear to auscultation bilaterally Abdomen: Soft, nondistended, mild suprapubic tenderness no rebound or guarding on exam Extremities: +5/5 strength noted in the bilateral upper and lower EXTR, radial pulse +2/4 in the bilateral extremities, no pedal edema exam Neurological: Patient following commands knew that she was at [facility] years 2024 Skin: Warm, dry, intact no rashes or lesions noted Const Vital Signs: 09/08/24 11:34 09/08/24 12:33 09/08/24 13:00 Temperature 98.3 F 97.8 F Temperature Source Oral Oral Pulse Rate 74 76 Respiratory Rate 16 18 Blood Pressure 110/73 113/62 108/74 Blood Pressure Mean 85 79 85 Pulse Ox 98 97 99 Oxygen Delivery Method Room Air Room Air 09/08/24 14:00 09/08/24 15:00 09/08/24 16:00 Temperature 98.4 F 98.2 F Temperature Source Oral Oral Pulse Rate 55 L 84 Respiratory Rate 16 15 Blood Pressure 108/69 104/72 108/72 Blood Pressure Mean 82 82 84 Pulse Ox 99 94 Oxygen Delivery Method Room Air Room Air MDM MDM MDM Narrative Medical decision making narrative: Patient is a 24-year-old female who presented to the emergency department chief complaint of vaginal bleeding. On the differential diagnose includes but not limited to retained products of conception, , UTI, anemia. Once workup is obtained reviewed she will be reevaluated. Patient's hemoglobin was noted to be 12.8, hematocrit was 37.9. Patient sodium was 138, potassium normal at 4, creatinine was 0.68. Patient's quant level was 14,774 positive test. Patient's transvaginal ultrasound showed findings suggestive of retained products of conception left ovarian cyst. I reached out to on-call BOBBIN INSPECTOR Dr. Valente who was recommending repeat H&H which was done. Patient's repeat H&H was noted to be 10.9 I called her back and had discussion she states that she will come in and evaluate the patient at bedside. After her evaluation here in the emergency department she states that the patient is good to go home and will follow-up with them in the outpatient setting this week. I discussed this with the patient and she is agreeable this plan as well. All question concerns answered she was discharged home in stable condition. Lab Data Labs: Laboratory Results - last 24 hr 09/08/24 09/08/24 11:45 15:45 Hgb 12.8 10.9 L Hct 37.9 31.9 L Sodium 138 Potassium 4.0 Chloride 105 Carbon Dioxide 22.7 Anion Gap 11 BUN 11 Creatinine 0.68 L Estim Creat Clear Calc 110.16 Est GFR (MDRD) Non-Af 125 BUN/Creatinine Ratio 15.6 Glucose 97 Calcium 9.2 HCG, Quant 87351 H Serum , Qual POSITIVE Radiography Diagnostic Testing: Clinical Impression(s) from Imaging Studies Transvaginal US 09/08/24 12:00 IMPRESSION: Findings suggestive of retained products of conception. Left ovarian cyst. Reading Location: [facility] Discharge Plan Triage Chief Complaint: Vag Bleeding ED Provider: Alfred Forde Dx/Rx/DC Orders Clinical Impression: Retained products of conception, Vaginal bleeding Prescriptions: No Action prenat.vits,gino,awx-rpaw-kqxfc Tablet 1 tab PO DAILY Primary Care Provider: Care Physician,No Primary Referrals: Care Physician,No Primary [Primary Care Provider] - Activity Restrictions/Additional Instructions: Follow-up with your BOBBIN INSPECTOR team as you discussed with Dr. Valente here in the emergency department. Return with worsening symptoms or any other concerns. Print Language: [place] Disposition Disposition: Home, Self Care
[2024-09-08 12:04] LABS: Hematocrit 37.9 % (37-47); Hemoglobin 12.8 g/dL (12.0-15.0)
[2024-09-08] MEDS: 0.9% Normal Saline (1000mL) 1,000 ML 999 ML IV (12:09)
[2024-09-08 12:46] LABS: Internal QC Validated? YES +Cl - CLEAR BKGD
[2024-09-08 12:48] LABS: Pregnancy, Serum, hCG Quali. POSITIVE Negative
[2024-09-08 12:49] LABS: Anion Gap 11 (5-15); BUN 11 mg/dL (4-19); BUN/Creat Ratio 15.6 RATIO (10-20); Calcium,Total 9.2 mg/dL (7.6-11.0); Carbon Dioxide 22.7 mmol/L (21.0-32.0); Chloride 105 mmol/L (98-108); Creatinine, Serum 0.68 mg/dL (0.70-1.20); EST Glomerular Filtration Rate 125 (>60); Estimated Creatinine Clearance 110.16 ml/min (50-250); Glucose 97 mg/dL (70-99); Sodium Level 138 mmol/L (133-145)
[2024-09-08 14:04] LABS: hCG Titer Quant., Serum 14774 mIU/mL (<9 non-preg)
[2024-09-08 16:00] LABS: Hematocrit 31.9 % (37-47); Hemoglobin 10.9 g/dL (12.0-15.0)
--- NOTE | 2024-09-08 21:10 | PCM.HP.STD ---
HPI - General General Date of Service: 09/08/24 HPI Narrative ZENOBIA LÓPEZ, is a 24 F who present to the emergency department chief complaint of vaginal bleeding. Patient states on of this past week she had a D&C performed by for her 2nd miscarriage. Patient states that afterwards she had spotting and bleeding that seem to get better by Saturday. States that Saturday she started having heavy bleeding again which persisted into Saturday and then when she woke up this morning she noted that she was passing large clots with increased bleeding. Since she has been in the ED the vaginal bleeding has become minimal. [facility] Medical History Migraine headache Non-smoker Leg cramps Abnormal ultrasound of breast Home Medications ?Medication ?Instructions ?Recorded ?Last Taken ?Type prenat.vits,gino,gzl-pntx-pdlcb 1 tab PO DAILY 03/30/22 Unknown History Held on 09/08/24. Instructions: MD Ordered Allergy/AdvReac Type Severity Reaction Status Date / Time No Known Allergies Allergy Verified 09/08/24 11:35 Family History Grandmother Hypertension Cancer ovarian ca - maternal GM Surgical History Hx of dilation and curettage Hx of wisdom tooth extraction Social History Smoking Status: Never smoker Vital Signs Vital Signs Vital Signs: 09/08/24 11:34 09/08/24 12:33 09/08/24 13:00 Temperature 98.3 F 97.8 F Temperature Source Oral Oral Pulse Rate 74 76 Respiratory Rate 16 18 Blood Pressure 110/73 113/62 108/74 Blood Pressure Mean 85 79 85 Pulse Ox 98 97 99 Oxygen Delivery Method Room Air Room Air 09/08/24 14:00 09/08/24 15:00 09/08/24 16:00 Temperature 98.4 F 98.2 F Temperature Source Oral Oral Pulse Rate 55 L 84 Respiratory Rate 16 15 Blood Pressure 108/69 104/72 108/72 Blood Pressure Mean 82 82 84 Pulse Ox 99 94 Oxygen Delivery Method Room Air Room Air 09/08/24 17:06 Temperature 97.6 F L Temperature Source Pulse Rate 52 L Respiratory Rate 16 Blood Pressure 114/76 Blood Pressure Mean 88 Pulse Ox 99 Oxygen Delivery Method Weight Weight: 137 lb 4 oz Body Mass Index (BMI) 23.6 Physical Exam Const alert and oriented x3 GI soft to palpation, non-tender and non-distended GI Narrative: - external genitalia normal with no blood on pad (patient changed pad 2-3 hours prior) Results Lab / Micro Data 09/08/24 15:45 09/08/24 11:45 Labs: Laboratory Results - last 24 hr 09/08/24 11:45: Hgb 12.8, Hct 37.9, Sodium 138, Potassium 4.0, Chloride 105, Carbon Dioxide 22.7, Anion Gap 11, BUN 11, Creatinine 0.68 L, Estim Creat Clear Calc 110.16, Est GFR (MDRD) Non-Af 125, BUN/Creatinine Ratio 15.6, Glucose 97, Calcium 9.2, HCG, Quant [id number] H, Serum , Qual POSITIVE 09/08/24 15:45: Hgb 10.9 L, Hct 31.9 L Imaging Radiology Impression Transvaginal US 09/08/24 12:00 IMPRESSION: Findings suggestive of retained products of conception. Left ovarian cyst. Reading Location: [id number] Assessment & Plan Assessment/Plan (1) Retained products of conception: (2) Vaginal bleeding: PLAN: Plan Patient is HDS and vaginal bleeding has resolved at this point. Discused R/B/A of management options. Patient elects for an in office IPAS at this office later this week. Bleeding precautions reviewed & all questions answered.
== END 2024-09-08 17:10 | disposition home or self-care (01) ==
PROVIDERS: Emergency Provider Emergency Medicine; Visit Provider Emergency Medicine
DX: O02.1 Missed abortion (principal)
CPT/HCPCS: 76830; 80048; 84702; 84703; 85014; 85018; 96360; 99283; A4216